=== PATIENT | male | born 1970 | race Hispanic/Latino ===

== ENCOUNTER 2018-05-31 09:54 | Inpatient (IN) | payer SELFPAY ==
[2018-05-31 10:45] LABS: INR-International Normal Ratio 1.2; Prothrombin Time 14.9 SEC (12.0-14.7)
[2018-05-31 10:46] LABS: PTT 36.6 SEC (22.9-36.1)
[2018-05-31 11:07] LABS: ALT (SGPT) 62 U/L (8-55); AST (SGOT) 12 U/L (5-34); Albumin 3.6 g/dL (3.5-5.0); Alkaline Phosphatase 91 U/L (40-150); Anion Gap 13 mmol/L (10-20); BUN (Urea Nitrogen) 15 mg/dL (8.9-20.6); Bilirubin, Total 0.6 mg/dL (0.2-1.2); Calc. Creatinine Clearance 0 mL/min (70-130); Calcium 8.7 mg/dL (7.8-10.44); Carbon Dioxide 24 mmol/L (22-29); Chloride 102 mmol/L (98-107); Estimated GFR-MDRD Greater than 90; Globulin 2.4 g/dL (2.4-3.5); Glucose 188 mg/dL (70-105); Lipase 35 U/L (8-78); Potassium 3.6 mmol/L (3.5-5.1); Sodium 135 mmol/L (136-145)
[2018-05-31 11:09] LABS: Anisocytosis MODERATE=16-30 cells (100X) (0-5/hpf); Band 20 % (5-11); Eosinophils 20 % (0-10); Hemoglobin 7.1 g/dL (14.0-18.0); Lymphocytes 40 % (21-51); MDiff Complete? YES; Mean Corpuscular Hemoglobin 35.3 pg (27.0-31.0); Mean Platelet Volume 9.8 fL (7.4-10.4); Metamyelocyte 1 % (0-0); Monocytes 5 % (0-10); Neutrophil 13 % (42-75); Nucleated RBC 1 % (0); PLT Morphology Comment Appears Decreased; Platelet Count 68 thou/uL (130-400); Polychromasia MODERATE = 3-4 cells (100X) (0-2/hpf); RBC Distribution Width 25.3 % (11.5-14.5); Reactive Lymphocytes 1 % (0-10); Tear Drops SLIGHT = 2-5 cells (100X) (0-1/hpf); White Blood Cell (WBC) Count 2.2 thou/uL (4.8-10.8)
[2018-05-31 12:24] LABS: Bilirubin Small (Negative); Blood, Urine Negative (Negative); Clarity CLEAR (Clear); Glucose, Urine (Dipstick) Negative (Negative); Leukocyte Trace (Negative); Nitrite Negative (Negative); Protein, Urine (Dipstick) 30 mg/dL (Neg-Trace); Specific Gravity, Urine 1.022 (1.002-1.036)
[2018-05-31 12:29] LABS: Bacteria/HPF None Seen HPF (None Seen); Pathc Cast-AUWi Flag 1.74 (0-2.49); RBC/HPF 0-3 HPF (0-3); Squamous Epithelial 0-3 HPF (0-3); WBC/HPF 0-3 HPF (0-3)
[2018-05-31 12:36] LABS: Hyaline Casts/LPF 0-3 HYALINE CAST LPF (0-3 Hyaline); Renal Epithelial None Seen HPF (0-3); Transitional Epithelial NONE SEEN HPF (0-3)
[2018-05-31] MEDS ORDERED: Pantoprazole 40 MG VIAL ONE (13:19)
[2018-05-31 13:32] LABS: Reticulocyte Count 2.5 % (0.5-1.5)
[2018-05-31 13:37] LABS: Iron 23 ug/dL (65-175); Iron Binding Capacity, Total 184 mcg/dL (261-462); LDH 176 U/L (125-220)
[2018-05-31 13:41] LABS: CKMB 0.6 ng/mL (0-6.6); Troponin I Less than 0.010 ng/mL (< 0.028)
[2018-05-31] MEDS ORDERED: Aluminum & Magnesium Hydroxide 60 ML, diphenhydrAMINE 150 MG, Lidocaine 2% Viscous Solu... SSW PRN (14:40)
[2018-05-31 15:21] VITALS: BMI 22.8
[2018-05-31] MEDS ORDERED: LEUCOVORIN CALCIUM IVPB SCH ×2 (15:30→20:15)
[2018-05-31] MEDS ORDERED: SODIUM CHLORIDE 0.9% IVPB SCH ×2 (15:30→20:15)
[2018-05-31] MEDS: Dextrose 5 % And 0.9 % NaCl 1,000 ML IV SCH ×2 (15:49→20:04)
[2018-05-31] MEDS ORDERED: Acetaminophen 650 MG in Premix Bag 1 BAG IVPB PRN (17:06)
[2018-05-31] MEDS: Cefepime 2 GM in Sodium Chloride 0.9% 100 ML IVPB SCH (17:46)
[2018-05-31 19:09] LABS: Complement-C4 30.8 mg/dL (15-53)
--- NOTE | 2018-05-31 19:45 | RAD ---
RADIOGRAPH CHEST 2 VIEWS: 05/31/18 HISTORY: 47-year-old male with fever, cough, chest congestion, and pancytopenia. FINDINGS: There is no air space density, pulmonary edema, pleural effusion, pneumothorax, or cardiomegaly. IMPRESSION: No acute cardiopulmonary findings. jn [] POS: [facility]
[2018-05-31] MEDS: Famotidine/PF 20 mg/2ml Vial SLOW IVP SCH (20:04)
--- NOTE | 2018-05-31 20:51 | HP ---
CHIEF COMPLAINT: Sent from [facility]. Chief complaint has been having also sores for the past 3 weeks. HISTORY OF PRESENT ILLNESS: Patient is a 47-year-old male with a history of rheumatoid arth ritis who normally follows a print manager in [place] who presented to the hospital with vanessa th sores x3 weeks. The patient stated that initially he did have one sore in his mouth, which was no t painful. Patient stated that he went to a doctor, which did not prescribing anything initially; ho wever, he started noticing more sores in his mouth. He returned back to the doctor where he prescrib ed him some medication. I do not know what they are and patient does not recall. Patient then state d that he went to work in [place], [place] where he started noticing that he was unable to eat or dr ink very much due to sores became more painful. The patient then went to a [facility] on 018 and got a prescription for minocycline and some labs were drawn. Patient today was asked from e [facility] to come in for further evaluation. Patient states that he has a history of rheumato id arthritis, which was diagnosed about a year and a half ago. He states that he does not know what medication he is on. He has been seeing the print manager here; however, had to change his appointm ents frequently and since he could not get medication refill from his print manager, he actually got his medications from [place]. The patient did indicate to me that his dosing for the methotrexate ferreira s been different. He denies any fevers or chills. He states that he has had weight loss and he stat es that he has been hungry; however, unable to eat because of his mouth sores. PAST MEDICAL HISTORY: History of rheumatoid arthritis per patient and also history of glaucoma. PAST SURGICAL HISTORY: Denies. SOCIAL HISTORY: Denies any alcohol, drug use or smoking. FAMILY HISTORY: Denies. The patient lives in [place] and last time he was in [place] was about 3 year s ago. ALLERGIES: He has got no known drug allergies. MEDICATIONS: Patient takes some medications at home. He was recently on minocycline, which was pres cribed on 05/27/2018; however, does not know the remaining of his medications. REVIEW OF SYSTEMS: All negative except for the ones mentioned above in the HPI. PHYSICAL EXAMINATION: VITAL SIGNS: Temperature of 100.1, 89, 16, 100% on room air, 153/78. GENERAL: He is awake, alert, oriented x3, appears to be in mild distress. HEENT: He does have significant sores to his lower lips and upper lips. He does have some white bor michael with some erythematous look on some of the blisters. He does have a few blisters on his buccal c avity; however, nothing underneath the tongue or on the palate. Patient's lips appeared to be mildly swollen. CARDIOVASCULAR: S1, S2 present. No murmurs, rubs or gallops. LUNGS: Clear to auscultation, rhonchi or wheezes noted. Patient also has been complaining of some n ashley pain which is painful upon palpation. ABDOMEN: Soft. Bowel sounds are present x2. He does have some tenderness to his epigastric area. EXTREMITIES: Lower extremities, he does have some healed scabs. Pedal pulses are present x2. NEUROLOGIC: Neurological ramey, no focal deficits noted. LABORATORY DATA: As of the following, WBCs of 2.2, hemoglobin of 7.1, hematocrit of 28.2, platelets of 68, eosinophils of 20, bands of 20. His chemistry; sodium 135, potassium 3.6, BUN of 15, creatini ne 0.88. His iron is 23, TIBC is 184, his CRP is 14.4. The patient also had labs done at other hosp [facility] which indicated WBCs of 2.4. This was done on 05/30/2018 which was collected on 05/28/2018 with hemoglobin of 7.2, hematocrit of 20.4. His platelets at that time were 60, monocytes 2.1, eosinophi ls were 1.2. Hemoglobin A1c was 6.4. He also had a glucose of 144, creatinine 0.71, alkaline phosph atase of 95, ALT of 187 and AST of 45. ASSESSMENT AND PLAN: The patient is a 47-year-old male who presents to the hospital with mouth sores , but also was sent from the [facility] due to his abnormal lab values. 1. Pancytopenia. This is most likely secondary to possible methotrexate toxicity. I actually larios d patient's print manager, Dr. Black and I spoke with him and he stated that the patient was on 7 .5 mg of methotrexate weekly. Patient did also indicate that he has gotten this medication from [facility] and stopped taking methotrexate on Tuesday because he was just not feeling well. I do not know how much or how many days or is weekly that he is taking. The patient stated that he will call his frie nd and bring in the medication. We will start the patient on some leucovorin for now. Also, check a methotrexate level. Patient does have a confirmed history of rheumatoid arthritis based on the [facility] print manager. There is a possibility of an additional autoimmune like lupus. We will check BHARAT again. We will check anti-double stranded. We will check SSA, SSB. We will check complements. We will continue to monitor. 2. Leukopenia with bands. Patient has a risk for opportunistic infection. We will start the patien t on broad spectrum antibiotics. I have been waiting on blood cultures that are to be drawn. The [facility] is receiving blood right now and they are unable to draw the blood cultures. 3. Anemia. This is most likely secondary to his pancytopenia. Patient did receive 1 unit of blood. We will continue to monitor. We will also start gentle IV hydration and also give the patient some thing for pain. In terms of nutrition, we will start patient on may be Ensure to see if he can melody ate Karina Ensure. Since the patient states that he is hungry, but has not been able to eat because of pain in his mouth. We will also give the patient Magic mouthwash. However, I am not sure if that w ill be very helpful. It might cause additional burning.
[2018-06-01] MEDS: Cefepime 2 GM in Sodium Chloride 0.9% 100 ML IVPB SCH ×2 (05:35→16:39)
[2018-06-01] MEDS: Famotidine/PF 20 mg/2ml Vial SLOW IVP SCH ×2 (08:03→20:16)
[2018-06-01 10:42] LABS: Hemoglobin 7.9 g/dL (14.0-18.0); Mean Corpuscular HGB CONC 35.2 g/dL (32.0-36.0); Mean Corpuscular Volume 96.6 fL (78.0-98.0); Mean Platelet Volume 8.3 fL (7.4-10.4); Platelet Count 110 thou/uL (130-400); RBC Distribution Width 23.9 % (11.5-14.5); Red Blood Cell (RBC) Count 2.34 mill/uL (4.70-6.10)
[2018-06-01 10:58] LABS: ALT (SGPT) 36 U/L (8-55); AST (SGOT) 10 U/L (5-34); Albumin 2.8 g/dL (3.5-5.0); Alkaline Phosphatase 71 U/L (40-150); Anion Gap 8 mmol/L (10-20); BUN (Urea Nitrogen) 8 mg/dL (8.9-20.6); Bilirubin, Total 0.6 mg/dL (0.2-1.2); Calc. Creatinine Clearance 112 mL/min (70-130); Calcium 7.9 mg/dL (7.8-10.44); Carbon Dioxide 25 mmol/L (22-29); Chloride 110 mmol/L (98-107); Estimated GFR-MDRD Greater than 90; Glucose 112 mg/dL (70-105); Potassium 3.2 mmol/L (3.5-5.1); Protein, Total 4.8 g/dL (6.0-8.3); Sodium 140 mmol/L (136-145)
[2018-06-01 11:17] LABS: Band 26 % (5-11); Eosinophils 10 % (0-10); Lymphocytes 23 % (21-51); MDiff Complete? YES; Metamyelocyte 7 % (0-0); Monocytes 8 % (0-10); Myelocyte 2 % (0-0); Neutrophil 17 % (42-75); Nucleated RBC 1 % (0); PLT Morphology Comment Appears Decreased; Polychromasia MODERATE = 3-4 cells (100X) (0-2/hpf); Reactive Lymphocytes 4 % (0-10); Reflex for Review?? NO; Tear Drops SLIGHT = 2-5 cells (100X) (0-1/hpf)
[2018-06-01] MEDS: Dextrose 5 % And 0.9 % NaCl 1,000 ML IV SCH ×2 (11:22→20:15)
--- NOTE | 2018-06-01 17:46 | PDOC.PN ---
- Subjective Encounter Start Date: 06/01/18 Encounter Start Time: 10:30 Subjective: pt up in bed feels much better today. Still has pain in his mouth - Objective Vital Signs & Weight: Vital Signs (12 hours) Temp Pulse Resp BP Pulse Ox 06/01/18 17:30 99.8 F H 100 18 125/80 95 06/01/18 12:05 98.9 F 86 18 136/79 97 06/01/18 08:00 98.6 F 80 16 97 06/01/18 07:29 98.6 F 80 16 124/76 99 Weight Admit Weight 133 lb 4.8 oz Weight 133 lb 4.8 oz I&O: 05/31/18 06/01/18 06/02/18 06:59 06:59 06:59 Intake Total 5036 360 Output Total 650 Balance 4386 360 Result Diagrams: 06/01/18 10:24 06/01/18 10:24 Phys Exam - Physical Examination mouth sores upper and lower lip and buccal cavity Neck: no nodes, no JVD, supple, full ROM Respiratory: no wheezing, no rales, no rhonchi, wheezing present, clear to auscultation bilateral Cardiovascular: RRR, no significant murmur, no rub, gallop, irregular Dx/Plan (1) Pancytopenia Code(s): D61.818 - OTHER PANCYTOPENIA Status: Acute (2) Rheumatoid disease Code(s): M06.9 - RHEUMATOID ARTHRITIS, UNSPECIFIED Status: Acute (3) Bandemia Code(s): D72.825 - BANDEMIA Status: Acute - Plan will continue abx since pt is immunocomprised. -: his counts are improving. -: he received 2 does of lucovorine -: will conitinue to [facility] * . Review of Systems - Review of Systems Respiratory: negative: Cough, Dry, Shortness of Breath, Hemoptysis, SOB with Excertion, Pleuritic Pain, Sputum, Wheezing Cardiovascular: negative: chest pain, palpitations, orthopnea, paroxysmal nocturnal dyspnea, edema, light headedness, other Gastrointestinal: negative: Nausea, Vomiting, Abdominal Pain, Diarrhea, Constipation, Melena, Hematochezia, Other - Medications/Allergies Allergies/Adverse Reactions: Allergies Allergy/AdvReac Type Severity Reaction Status Date / Time No Known Allergies Allergy Verified 05/31/18 14:55 Medications: Current Medications Al Hydroxide/Mg Hydroxide 60 ml/ Diphenhydramine HCl 150 mg / Lidocaine HCl 60 ml/Nystatin 6,000,000 units 0 ml SSW TID PRN PRN Reason: Mouth Irritation Famotidine (Pepcid) 20 mg SLOW IVP BID [facility] Last Admin: 06/01/18 08:03 Dose: 20 mg Dextrose/Sodium Chloride (D5 0.9% Ns) 1,000 mls @ 100 mls/hr IV .Q10H [facility] Last Admin: 06/01/18 11:22 Dose: 1,000 mls Cefepime HCl 2 gm/ Sodium (Chloride) 100 mls @ 200 mls/hr IVPB 0500,1700 [facility] Last Admin: 06/01/18 16:39 Dose: 100 mls Potassium Chloride 20 meq/ (Device) 200 mls @ 100 mls/hr IVPB NOW [facility] Morphine Sulfate (Morphine) 2 mg SLOW IVP Q4H PRN PRN Reason: Pain Last Admin: 06/01/18 05:45 Dose: 2 mg
[2018-06-01] MEDS ORDERED: SODIUM CHLORIDE 0.9% IVPB SCH (18:00)
[2018-06-01] MEDS ORDERED: Potassium Chloride 20 MEQ in Premix Bag 1 BAG IVPB SCH ×2 (18:00→20:00)
[2018-06-01] MEDS ORDERED: LEUCOVORIN CALCIUM IVPB SCH (18:00)
[2018-06-01] MEDS ORDERED: VANCOMYCIN IVPB PRN (22:57)
[2018-06-01] MEDS ORDERED: Nystatin 500,000 UNITS/5 ML UDCUP SSW SCH (23:00)
[2018-06-01] MEDS: Vancomycin HCl 1 GM in Premix Bag 1 BAG IVPB SCH (23:07)
[2018-06-02] MEDS: Dextrose 5 % And 0.9 % NaCl 1,000 ML IV SCH (03:00)
[2018-06-02] MEDS: Cefepime 2 GM in Sodium Chloride 0.9% 100 ML IVPB SCH ×2 (04:55→17:54)
[2018-06-02 05:02] LABS: ALT (SGPT) 30 U/L (8-55); AST (SGOT) 10 U/L (5-34); Albumin 2.9 g/dL (3.5-5.0); Alkaline Phosphatase 75 U/L (40-150); Anion Gap 10 mmol/L (10-20); BUN (Urea Nitrogen) 4 mg/dL (8.9-20.6); Bilirubin, Total 0.5 mg/dL (0.2-1.2); Calc. Creatinine Clearance 103 mL/min (70-130); Calcium 7.7 mg/dL (7.8-10.44); Carbon Dioxide 25 mmol/L (22-29); Chloride 106 mmol/L (98-107); Estimated GFR-MDRD Greater than 90; Glucose 118 mg/dL (70-105); Potassium 3.2 mmol/L (3.5-5.1); Protein, Total 4.9 g/dL (6.0-8.3); Sodium 138 mmol/L (136-145)
[2018-06-02 05:43] LABS: Anisocytosis MODERATE=16-30 cells (100X) (0-5/hpf); Band 26 % (5-11); Elliptocytes SLIGHT = 2-5 cells (100X) (0-1/hpf); Eosinophils 5 % (0-10); Hemoglobin 8.1 g/dL (14.0-18.0); Lymphocytes 24 % (21-51); MDiff Complete? YES; Mean Corpuscular HGB CONC 35.3 g/dL (32.0-36.0); Mean Corpuscular Hemoglobin 33.9 pg (27.0-31.0); Mean Corpuscular Volume 96.1 fL (78.0-98.0); Mean Platelet Volume 7.5 fL (7.4-10.4); Monocytes 24 % (0-10); Myelocyte 1 % (0-0); Neutrophil 20 % (42-75); Platelet Count 221 thou/uL (130-400); Polychromasia SLIGHT = 2-3 cells (100X) (0-2/hpf); RBC Distribution Width 23.6 % (11.5-14.5); Red Blood Cell (RBC) Count 2.37 mill/uL (4.70-6.10); White Blood Cell (WBC) Count 4.6 thou/uL (4.8-10.8)
[2018-06-02] MEDS: Vancomycin HCl 1 GM in Premix Bag 1 BAG IVPB SCH ×2 (08:48→16:38)
[2018-06-02] MEDS: Famotidine/PF 20 mg/2ml Vial SLOW IVP SCH ×2 (08:53→20:51)
[2018-06-02] MEDS: Nystatin 500,000 UNITS/5 ML UDCUP SSW SCH ×2 (08:53→20:50)
[2018-06-02] MEDS ORDERED: Potassium Chloride 20 MEQ in Premix Bag 1 BAG IVPB SCH (09:30)
[2018-06-02] MEDS: Folic Acid 1 MG TAB PO SCH (09:52)
[2018-06-02] MEDS: D5 NS w/ 40 mEq KCl 1,000 ML IV SCH ×2 (09:52→17:58)
--- NOTE | 2018-06-02 14:37 | PDOC.PN ---
- Subjective Encounter Start Date: 06/02/18 Encounter Start Time: 11:00 Subjective: pt up in bed no complains. states he feels better - Objective Vital Signs & Weight: Vital Signs (12 hours) Temp Pulse Resp BP Pulse Ox 06/02/18 08:00 98.5 F 83 18 98 06/02/18 07:08 98.5 F 83 18 108/69 98 Weight Admit Weight 133 lb 4.8 oz Weight 133 lb 4.8 oz I&O: 06/01/18 06/02/18 06/03/18 06:59 06:59 06:59 Intake Total 5036 720 Output Total 650 Balance 4386 720 Result Diagrams: 06/02/18 04:14 06/02/18 04:14 Phys Exam - Physical Examination Respiratory: no wheezing, no rales, no rhonchi, wheezing present, clear to auscultation bilateral Cardiovascular: RRR, no significant murmur, no rub, gallop, irregular Gastrointestinal: soft, non-tender, no distention, positive bowel sounds Musculoskeletal: no edema, pulses present, edema present Dx/Plan (1) Pancytopenia Code(s): D61.818 - OTHER PANCYTOPENIA Status: Acute (2) Rheumatoid disease Code(s): M06.9 - RHEUMATOID ARTHRITIS, UNSPECIFIED Status: Acute (3) Bandemia Code(s): D72.825 - BANDEMIA Status: Acute - Plan will continue to monitor -: will add folic acid. per pt he is feeling well. will advance diet. -: pt has been taking 4 meds ( prednisone, metotraxate, celecoxib, sulfasalzi -: potassium replaced * . Review of Systems - Review of Systems Respiratory: negative: Cough, Dry, Shortness of Breath, Hemoptysis, SOB with Excertion, Pleuritic Pain, Sputum, Wheezing Cardiovascular: negative: chest pain, palpitations, orthopnea, paroxysmal nocturnal dyspnea, edema, light headedness, other Gastrointestinal: negative: Nausea, Vomiting, Abdominal Pain, Diarrhea, Constipation, Melena, Hematochezia, Other Genitourinary: negative: Dysuria, Frequency, Incontinence, Hematuria, Retention , Other - Medications/Allergies Allergies/Adverse Reactions: Allergies Allergy/AdvReac Type Severity Reaction Status Date / Time No Known Allergies Allergy Verified 05/31/18 14:55 Medications: Current Medications Al Hydroxide/Mg Hydroxide 60 ml/ Diphenhydramine HCl 150 mg / Lidocaine HCl 60 ml/Nystatin 6,000,000 units 0 ml SSW TID PRN PRN Reason: Mouth Irritation Famotidine (Pepcid) 20 mg SLOW IVP BID [facility] Last Admin: 06/02/18 08:53 Dose: 20 mg Folic Acid (Folvite) 1 mg PO DAILY [facility] Last Admin: 06/02/18 09:52 Dose: 1 mg Cefepime HCl 2 gm/ Sodium (Chloride) 100 mls @ 200 mls/hr IVPB 0500,1700 [facility] Last Admin: 06/02/18 04:55 Dose: 100 mls Vancomycin HCl 1 gm/ Device 200 mls @ 200 mls/hr IVPB 0800,1600,2359 [facility] Last Admin: 06/02/18 08:48 Dose: 200 mls Potassium Chloride/Dextrose/Sod Cl (D5 Ns W/ 40 Meq Kcl) 1,000 mls @ 100 mls/ hr IV .Q10H [facility] Last Admin: 06/02/18 09:52 Dose: 1,000 mls Miscellaneous Medication (Pharmacy To Dose) 1 each IVPB PRN PRN PRN Reason: RPH TO DOSE VANC Morphine Sulfate (Morphine) 2 mg SLOW IVP Q4H PRN PRN Reason: Pain Last Admin: 06/01/18 05:45 Dose: 2 mg Nystatin (Mycostatin) 500,000 units SSW BID [facility] Last Admin: 06/02/18 08:53 Dose: 500,000 units
[2018-06-02 23:26] LABS: Vancomycin, Trough 18.9 ug/mL
[2018-06-03] MEDS: Vancomycin HCl 1 GM in Premix Bag 1 BAG IVPB SCH ×2 (00:03→08:40)
[2018-06-03] MEDS: Cefepime 2 GM in Sodium Chloride 0.9% 100 ML IVPB SCH (04:42)
[2018-06-03] MEDS: D5 NS w/ 40 mEq KCl 1,000 ML IV SCH ×2 (05:57→08:46)
[2018-06-03] MEDS: Famotidine/PF 20 mg/2ml Vial SLOW IVP SCH (08:40)
[2018-06-03] MEDS: Folic Acid 1 MG TAB PO SCH (08:40)
[2018-06-03] MEDS: Nystatin 500,000 UNITS/5 ML UDCUP SSW SCH (08:40)
[2018-06-03 10:15] LABS: Anion Gap 10 mmol/L (10-20); BUN (Urea Nitrogen) 5 mg/dL (8.9-20.6); Calc. Creatinine Clearance 104 mL/min (70-130); Calcium 8.2 mg/dL (7.8-10.44); Carbon Dioxide 25 mmol/L (22-29); Chloride 107 mmol/L (98-107); Estimated GFR-MDRD Greater than 90; Glucose 116 mg/dL (70-105); Potassium 3.4 mmol/L (3.5-5.1); Sodium 139 mmol/L (136-145)
[2018-06-03 10:35] LABS: Anisocytosis MODERATE=16-30 cells (100X) (0-5/hpf); Band 16 % (5-11); Eosinophils 4 % (0-10); Hemoglobin 8.3 g/dL (14.0-18.0); Lymphocytes 45 % (21-51); MDiff Complete? YES; Mean Corpuscular HGB CONC 33.8 g/dL (32.0-36.0); Mean Corpuscular Hemoglobin 32.9 pg (27.0-31.0); Mean Corpuscular Volume 97.4 fL (78.0-98.0); Mean Platelet Volume 6.9 fL (7.4-10.4); Metamyelocyte 2 % (0-0); Monocytes 7 % (0-10); Neutrophil 26 % (42-75); Platelet Count 474 thou/uL (130-400); Polychromasia SLIGHT = 2-3 cells (100X) (0-2/hpf); RBC Distribution Width 23.1 % (11.5-14.5); Red Blood Cell (RBC) Count 2.52 mill/uL (4.70-6.10); White Blood Cell (WBC) Count 5.8 thou/uL (4.8-10.8)
[2018-06-03] MEDS ORDERED: Potassium Chloride 20 MEQ TAB PO SCH (13:15)
[2018-06-03 15:40] VITALS: BP 132/82; TEMP 98.8
--- NOTE | 2018-06-03 23:05 | DIS ---
DATE OF ADMISSION: 05/31/2018 DATE OF DISCHARGE: 06/03/2018 DISCHARGE DIAGNOSES: 1. Pancytopenia. 2. Methotrexate toxicity. 3. History of rheumatoid arthritis. 4. Oral sores. HOSPITAL COURSE: The patient is a very pleasant 47-year-old male, who initially presented to the [facility] with significant oral ulcers, for which he was treated with minocycline for about 3 days. The patient stated that he had lost about 6-7 pounds since he was unable to eat or drink for the past 4-5 days. At this time, patient was found to have pancytopenia on lab work. He was initially started w ith IV antibiotics and also had a fever. Patient's blood cultures indicated micrococcus, which most likely was a contaminant, just one blood culture; the other one was negative. Patient was given leuc ovorin x3 doses 15 mg. He tolerated that really well, and over the hospital course, he continued to improve and he was able to tolerate oral meals well. At this time, during the hospital course, Manuel jeronimo had talked with his manager diabetes and updated him about the patient's condition. The patient was advised to stay off of all his medications for now. He was put on folic acid and was asked to follow up with his manager diabetes in 1-2 weeks in order to restart his medications. His home medications a re as of the following. I gave him Keflex 500 mg p.o. b.i.d., folic acid 1 mg p.o. daily, and lidoca ine viscous 60 mL t.i.d. p.r.n., swish. PHYSICAL EXAMINATION: VITAL SIGNS: As of the following, 98.8, 99, 18, 97% on room air, 132/82. GENERAL: He is awake, alert, and oriented x3, does not appear in distress. CARDIOVASCULAR: S1 and S2 present. No murmurs, rubs, or gallops. ABDOMEN: Soft and nontender. Bowel sounds present. EXTREMITIES: No edema. Again, he will be discharged home. He will follow up with his manager diabetes. For right now, he is asked to stop all of his anti-rheumatoid medications given his significant pancytopenia. He also did receive 1 unit of PRBCs. His immunology on most of the tests were pending; however, his complements were actually normal.
== END 2018-06-03 15:40 | disposition home or self-care (01) | DRG 809 ==
LOC: ERS 09:54 → T4-B 12:59
PROVIDERS: ADMIT Internal Medicine; ATTEND Internal Medicine
PROC: 30233N1 Transfusion of Nonautologous Red Blood Cells into Peripheral Vein, Percutaneous Approach (ICD-10-PCS; principal; 2018-05-31)
DX: D61.818 Other pancytopenia (principal); K92.2 Gastrointestinal hemorrhage, unspecified; M06.9 Rheumatoid arthritis, unspecified; T45.1X5A Adverse effect of antineoplastic and immunosuppressive drugs, initial encounter; K13.79 Other lesions of oral mucosa; K12.1 Other forms of stomatitis; D72.819 Decreased white blood cell count, unspecified; D72.825 Bandemia; D62 Acute posthemorrhagic anemia
CPT/HCPCS: 36415; 36430; 71046; 80048; 80053; 80202; 80375; 81003; 81015; 82274; 82553; 82728; 83010; 83516; 83540; 83550; 83615; 83690; 84484; 85025; 85046; 85060; 85610; 85652; 85730; 86038; 86140; 86160; 86225; 86235; 86376; 86850; 86900; 86901; 87040; 87149; 93005; 96361; 96374; C9113; G0480; J0131; J0640; J0692; J2270; J3370; J3480; J7050; P9016; S0028

== ENCOUNTER 2019-06-15 04:31 | Emergency (ER) | payer OTHER, SELFPAY ==
[2019-06-15] MEDS ORDERED: Morphine 4 MG/ML VIAL ONE (04:55)
[2019-06-15] MEDS ORDERED: Ketorolac Tromethamine 30 MG/ML VIAL ONE (04:55)
[2019-06-15 05:23] LABS: #Lymphocytes 1.3 thou/uL (1.20-3.40); #Neutrophils 9.1 thou/uL (1.40-6.50); %Basophils 0.3 % (0.0-1.0); %Eosinophils 0.1 % (0.0-10.0); %Lymphocytes 11.1 % (21.0-51.0); %Monocytes 8.7 % (0.0-10.0); %Neutrophils 79.9 % (42.0-75.0); Hemoglobin 14.8 g/dL (14.0-18.0); Mean Corpuscular Hemoglobin 32.5 pg (27.0-31.0); Mean Corpuscular Volume 95.5 fL (78.0-98.0); Mean Platelet Volume 7.2 fL (7.4-10.4); Platelet Count 231 thou/uL (130-400); RBC Distribution Width 12.1 % (11.5-14.5); Red Blood Cell (RBC) Count 4.54 mill/uL (4.70-6.10); White Blood Cell (WBC) Count 11.3 thou/uL (4.8-10.8)
[2019-06-15 05:29] LABS: Bilirubin Negative (Negative); Blood, Urine 2+ (Negative); Clarity Extra Turbid (Clear); Glucose, Urine (Dipstick) Normal (Negative); Leukocyte Negative Leu/uL (Negative); Nitrite Negative (Negative); Protein, Urine (Dipstick) 70 mg/dL (Neg-Trace); RBC/HPF Greater than 50 HPF (0-3); Squamous Epithelial 0-3 HPF (0-3); Urobilinogen Normal mg/dL (Less than 2); WBC/HPF 0-3 HPF (0-3)
[2019-06-15 05:42] LABS: Bacteria/HPF 1+ HPF (None Seen)
[2019-06-15 05:48] LABS: ALT (SGPT) 15 U/L (8-55); AST (SGOT) 23 U/L (5-34); Albumin 4.1 g/dL (3.5-5.0); Alkaline Phosphatase 111 U/L (40-150); Anion Gap 14 mmol/L (10-20); BUN (Urea Nitrogen) 18 mg/dL (8.9-20.6); Bilirubin, Total 0.5 mg/dL (0.2-1.2); Calc. Creatinine Clearance 0 mL/min (70-130); Calcium 9.1 mg/dL (7.8-10.44); Carbon Dioxide 22 mmol/L (22-29); Chloride 103 mmol/L (98-107); Estimated GFR-MDRD 76; Globulin 3.6 g/dL (2.4-3.5); Glucose 115 mg/dL (70-105); Potassium 3.8 mmol/L (3.5-5.1); Protein, Total 7.7 g/dL (6.0-8.3); Sodium 135 mmol/L (136-145)
--- NOTE | 2019-06-15 08:01 | CT ---
PRELIMINARY REPORT/[facility]/EMERGENCY AFTER HOURS PROCEDURE: EXAM: CT Abdomen and Pelvis Without Contrast EXAM DATE/TIME: 06/15/2019 5:12 AM CLINICAL HISTORY: 49 years old, male; Abdominal pain; Acute; Patient HX: 49 y/o m presents to ED C/O sudden onset of R sided pain that began at 2100 last night. No h/o cholecystectomy or appendectomy; No h/o abdomen surg joselyn. No h/o nephrolithiasis. PT reports occasional alcohol ingestion, no frequent ingestion. TECHNIQUE: Imaging protocol: Computed tomography of the abdomen and pelvis without contrast. COMPARISON: No relevant prior studies available. FINDINGS: Lower chest: There are atheromatous calcifications of the coronary vasculature. Liver: Fatty liver infiltration. Benign appearing 9 mm dystrophic calcification at the dome. Gallbladder and bile ducts: No calcified stones. No ductal dilation. Pancreas: No acute pathology. No ductal dilation. Spleen: No solid mass. No splenomegaly. Adrenals: No mass. Kidneys and ureters: Moderate right hydronephrosis with advanced perinephric stranding secondary to 6 x 6 mm rounded mid ureteral stone. No left sided obstruction or stone. Stomach and bowel: There is moderate colonic fecal retention. No obstruction. Appendix: No evidence of appendicitis. Intraperitoneal space: No free air. Vasculature: There are atheromatous changes of the abdominal aorta without aneurysm. Lymph nodes: No enlarged lymph nodes. Bladder: Unremarkable as visualized. Reproductive: Unremarkable as visualized. Bones/joints: Chronic degenerative spinal changes without acute fracture or dislocation. Chronic bila teral pars defects at L5-S1. Mild levoscoliosis, apex at L3. Soft tissues: Unremarkable. IMPRESSION: Moderate right hydronephrosis with advanced perinephric stranding secondary to 6 x 6 mm rounded mid u reteral stone. Atheromatous calcifications of the coronary vasculature and aorta. Fatty liver. Thank you for allowing us to participate in the care of your patient. Dictated and Authenticated by: Faustino Randolph MD 06/15/2019 5:57 AM Central Time ([place] & [place]) FINAL REPORT CT STONE PROTOCOL: FINDINGS/IMPRESSION: Final report is in agreement with the above-provided preliminary interpretation. Moderate obstruction of the right renal collecting system and proximal right ureter due to obstructin g mid right ureteral calculus, approximately 6 mm. Additional details are as described above.
== END 2019-06-15 09:37 | disposition home or self-care (01) ==
LOC: ERS 04:31
DX: N13.2 Hydronephrosis with renal and ureteral calculous obstruction (principal)
CPT/HCPCS: 74176; 80053; 81003; 81015; 85025; 87086; 96374; 96375; J1885; J2270